=== PATIENT | male | born 1935 | race American Indian/Alaskan Native ===

== ENCOUNTER 2020-07-12 11:53 | Emergency (ER) | payer MEDICARE, MEDICAID ==
[~2020-07-12] VITALS: Ht 185.4 cm; Wt 98.0 kg
[~2020-07-12 11:53] MED LIST: ALBU8.5H8 INH; ALLO100T PO; AZI25OT PO; BUDE10.22 INH; CARV-50 PO; CLON0.1T2 PO; DILT240C47 PO; FINA5TAB11 PO; FLO0.4C PO; FLUO20CA39 PO; FURO-150 PO; GABA600T13 PO; GUAI100L97 PO; HUM7525 SQ; ICOS1CAP PO; IPRA4AER IH; LACT1CAP26 PO; LAMO100T2 PO; LINA5TAB4 PO; LISI40TA4 PO; METF-516 PO; MULT-384 PO; NITR0.4T51 SL; OXYC-150 PO; PANT40TA54 PO; PHEN100C4 PO; ROSU40TA PO; VENL75TA90 PO; WOOL454C TP
[2020-07-12] MEDS ORDERED: normal saline 1000ML IV soln IVB ONE (12:15)
[2020-07-12 12:29] LABS: BASOPHILS % (AUTO) 0.3 % (0-1); EOSINOPHILS # (AUTO) 0.3 X10'3 (0-0.9); EOSINOPHILS % (AUTO) 4.4 % (0-6); HEMATOCRIT 35.7 % (42.0-52.0); HEMOGLOBIN 12.1 g/dl (14.0-17.9); LYMPHOCYTES # (AUTO) 1.7 X10'3 (1.1-4.8); LYMPHOCYTES % (AUTO) 20.9 % (21-51); MEAN CORPUSCULAR HEMOGLOBIN 32.2 PG (27.0-31.0); MEAN CORPUSCULAR HGB CONC 33.9 g/dL (33.0-36.5); MEAN CORPUSCULAR VOLUME 94.8 FL (78-98); MEAN PLATELET VOLUME 8.9 FL (7.4-10.4); MONOCYTES # (AUTO) 0.5 X10'3 (0-0.9); MONOCYTES % (AUTO) 6.5 % (2-12); NEUTROPHILS # (AUTO) 5.4 X10'3 (1.8-7.7); NEUTROPHILS % (AUTO) 67.9 % (42-75); PLATELET COUNT 175 X10'3 (140-440); RED BLOOD COUNT 3.77 X10'6 (4.70-6.10); RED CELL DISTRIBUTION WIDTH 14.7 % (11.5-14.5); WHITE BLOOD COUNT 7.9 X10'3 (4.5-11.0)
[2020-07-12 12:40] LABS: ALANINE AMINOTRANSFERASE 33 U/L (12-78); ALBUMIN 3.2 G/DL (3.4-5.0); ALBUMIN/GLOBULIN RATIO 0.9 (1.1-1.5); ALKALINE PHOSPHATASE 87 IU/L (46-116); ANION GAP 6 (8-16); ASPARTATE AMINO TRANSFERASE 22 U/L (10-37); BILIRUBIN,TOTAL 0.2 MG/DL (0.1-1.0); BLOOD UREA NITROGEN 39 MG/DL (7-18); CALCIUM 7.9 MG/DL (8.5-10.1); CHLORIDE 104 MMOL/L (99-107); CREATININE 1.77 MG/DL (0.60-1.10); GLUCOSE 353 MG/DL (70-104); POTASSIUM 4.5 MMOL/L (3.5-5.1); SODIUM 136 MMOL/L (135-145); TOTAL CARBON DIOXIDE 25.9 MMOL/L (24-32); TOTAL PROTEIN 6.8 G/DL (6.4-8.2); eGFR 37 ML/MIN
[2020-07-12] MEDS ORDERED: oxyCODONE/APAP 10/325mg tablet PO ONE (13:30)
--- NOTE | 2020-07-12 13:46 | NUR ---
PATIENT STATES THAT HE IS NOT ALLERGIC TO MORPHINE
--- NOTE | 2020-07-12 13:48 | NUR ---
PATIENT DRANK 240 ML WITHOUT DIFFICULTY
[2020-07-12] MEDS ORDERED: normal saline 1000ml 1,000 ML IV ONE (13:55)
[2020-07-12 13:56] LABS: CLARITY,URINE CLEAR (Clear); COLOR,URINE YELLOW (Yellow); GLUCOSE, URINE 100 mg/dl (Neg); KETONES,URINE NEGATIVE (Neg); LEUKOCYTE ESTERASE ,URINE NEGATIVE (Neg); NITRITES, URINE NEGATIVE (Neg); OCCULT BLOOD,URINE NEGATIVE (Neg); PH,URINE 5.5 (4.8-8.0); PROTEIN,URINE NEGATIVE (Neg); UROBILINOGEN,URINE 0.2 E.U/dL (0.2-1.0)
--- NOTE | 2020-07-12 13:56 | NUR ---
DR ORTIZ IN ROOM. PATIENT IS MORE ALERT AND PERKY. VERBAL ORDER FOR 500 ML NS PRIOR TO DC
[2020-07-12 13:59] LABS: UA COLLECTION TYPE FOLEY CATH
--- NOTE | 2020-07-12 14:07 | NUR ---
PERICARE DONE AFTER STRAIGHT CATH, DIAPER FILLED WITH URINE, NEW DIAPER PLACED
--- NOTE | 2020-07-12 14:32 | NUR ---
called danay caregiver to come pick out hand pt, she was very reluctant to come and get him, i reasurred her that all lab work and scans came back within normal limits and that now pt needs to follow up with pcd inorder to continue his care. caregiver is danay mancilla [phone]
--- NOTE | 2020-07-12 15:15 | NUR ---
PT WAS PICKED UP BY CAREGIVER THAT WANTED ME TO EXPLAI HIS MEDICATIONS TO HER THAT HE WAS PRESCRIBED FROM A PREVIOUS FACILITY. I EXPLAINED TO HER THAT SHE NEEDED TO CONTACT THAT FACILITY AND HIS PRIMARY CARE DR TO GO OVER PTS MEDICATIONS AND THAT WE ARE INCHARGE OF HIS ACUTE CARE NEEDS THAT HE WAS BROUGHT IN FOR. CAREGIVER REQUESTED THE PAPERWORK HE GOT BROUGHT IN WITH FROM PREVIOUS FACILITY I MADE A COPY OF IT AND KEPT ON EIN THE CHART AND GAVE THE OTHER TO HER.
[2020-07-12 15:19] VITALS: BP 179/82
== END 2020-07-12 15:22 | disposition home or self-care (01) ==
LOC: ER 11:54
DX: E86.0 Dehydration (principal); R41.82 Altered mental status, unspecified; E11.65 Type 2 diabetes mellitus with hyperglycemia; I25.10 Atherosclerotic heart disease of native coronary artery without angina pectoris; Z86.73 Personal history of transient ischemic attack (TIA), and cerebral infarction without residual deficits; I50.9 Heart failure, unspecified; I13.0 Hypertensive heart and chronic kidney disease with heart failure and stage 1 through stage 4 chronic kidney disease, or unspecified chronic kidney disease; J44.9 Chronic obstructive pulmonary disease, unspecified; N18.9 Chronic kidney disease, unspecified; E11.22 Type 2 diabetes mellitus with diabetic chronic kidney disease; G89.29 Other chronic pain; F32.9 Major depressive disorder, single episode, unspecified; Z98.890 Other specified postprocedural states; Z88.5 Allergy status to narcotic agent; Z88.8 Allergy status to other drugs, medicaments and biological substances; Z79.82 Long term (current) use of aspirin; Z79.4 Long term (current) use of insulin; Z79.899 Other long term (current) drug therapy
CPT/HCPCS: 36415; 70450; 71045; 80053; 81003; 82948; 85025; 93005; 96360; 99285; J7030

== ENCOUNTER 2020-07-13 12:53 | Emergency (ER) | payer MEDICARE, MEDICAID ==
[~2020-07-13] VITALS: Ht 182.9 cm; Wt 97.5 kg
[2020-07-13 14:12] LABS: BASOPHILS % (AUTO) 0.5 % (0-1); EOSINOPHILS # (AUTO) 0.2 X10'3 (0-0.9); EOSINOPHILS % (AUTO) 2.8 % (0-6); HEMATOCRIT 34.9 % (42.0-52.0); HEMOGLOBIN 12.3 g/dl (14.0-17.9); LYMPHOCYTES # (AUTO) 1.4 X10'3 (1.1-4.8); LYMPHOCYTES % (AUTO) 19.6 % (21-51); MEAN CORPUSCULAR HGB CONC 35.3 g/dL (33.0-36.5); MEAN CORPUSCULAR VOLUME 93.5 FL (78-98); MEAN PLATELET VOLUME 8.7 FL (7.4-10.4); MONOCYTES # (AUTO) 0.6 X10'3 (0-0.9); MONOCYTES % (AUTO) 7.8 % (2-12); NEUTROPHILS # (AUTO) 4.9 X10'3 (1.8-7.7); NEUTROPHILS % (AUTO) 69.3 % (42-75); PLATELET COUNT 167 X10'3 (140-440); RED BLOOD COUNT 3.74 X10'6 (4.70-6.10); RED CELL DISTRIBUTION WIDTH 14.7 % (11.5-14.5); WHITE BLOOD COUNT 7.1 X10'3 (4.5-11.0)
[2020-07-13 14:41] LABS: ALANINE AMINOTRANSFERASE 33 U/L (12-78); ALBUMIN 3.2 G/DL (3.4-5.0); ALBUMIN/GLOBULIN RATIO 0.9 (1.1-1.5); ALKALINE PHOSPHATASE 86 IU/L (46-116); ANION GAP 7 (8-16); ASPARTATE AMINO TRANSFERASE 24 U/L (10-37); BILIRUBIN,TOTAL 0.3 MG/DL (0.1-1.0); BLOOD UREA NITROGEN 30 MG/DL (7-18); BUN/CREATININE RATIO 23.4 (5.4-32.0); CALCIUM 8.5 MG/DL (8.5-10.1); CHLORIDE 105 MMOL/L (99-107); CREATININE 1.28 MG/DL (0.60-1.10); GLUCOSE 284 MG/DL (70-104); POTASSIUM 4.1 MMOL/L (3.5-5.1); SODIUM 140 MMOL/L (135-145); TOTAL CARBON DIOXIDE 27.8 MMOL/L (24-32); TOTAL PROTEIN 6.8 G/DL (6.4-8.2); eGFR 54 ML/MIN
[2020-07-13] MEDS ORDERED: normal saline 1000ML IV soln IVB ONE (15:10)
[2020-07-13 15:54] LABS: CLARITY,URINE CLEAR (Clear); COLOR,URINE STRAW (Yellow); GLUCOSE, URINE 500 mg/dl (Neg); KETONES,URINE NEGATIVE (Neg); LEUKOCYTE ESTERASE ,URINE NEGATIVE (Neg); NITRITES, URINE NEGATIVE (Neg); OCCULT BLOOD,URINE NEGATIVE (Neg); PROTEIN,URINE 30 mg/dl (Neg); UROBILINOGEN,URINE 0.2 E.U/dL (0.2-1.0)
[2020-07-13 15:56] LABS: UA COLLECTION TYPE STRAIGHT CATH
[2020-07-13 16:02] LABS: BACTERIA,URINE NONE SEEN /HPF (Neg); MUCUS STRANDS NONE SEEN /LPF (Neg); RBC,URINE NONE SEEN /HPF (0-2); SQUAMOUS EPITHELIAL CELL,UR FEW /LPF (FEW); WBC,URINE NONE SEEN /HPF (0-4)
--- NOTE | 2020-07-13 16:19 | NUR ---
Attempting to phone patient's caregiver, no answer received. Pt reports she will come to the ED to pick him up for discharge to home. Paging Car Knocker for consult regarding the patient's care and discharge plan.
--- NOTE | 2020-07-13 16:55 | NUR ---
Pt's caregiver phoned and when this nurse answered the phone she stated "I am unable to pick him up until you guys adjust his medication list." Pt's caregiver informed that we are an emergency department and we handle emergency medical conditions and are not able to manage the patient's home medication management. She then stated "then I am unable to pick him up and I will phone your social worker clinical Oma to inform her I am not able to pick him up for discharge to come home" and hung up the phone. Charge Nurse Nina Thomas RN notified of the above conversation and paged School Psychologist Assistant again.
--- NOTE | 2020-07-13 17:34 | NUR ---
Phoned [facility] and spoke with Grecia to file a report of the patient's caregiver refusing to pick him up and statements that she will continue to send him back via ambulance until we make adjustments to the home medication regimen. Pt is clear that he has no desire to be admitted to the hospital and wants to be discharged home to his apartment. Grecia reports she will have a Media Assistant follow up with the situation.
--- NOTE | 2020-07-13 19:35 | NUR ---
Spoke with the ED provider Dr. Villa regarding the patient's elevated BP and he said to continue to monitor the BP and no new orders received at this time.
--- NOTE | 2020-07-13 19:40 | NUR ---
Patient is attempting to phone his patient care coordinator to pick him up.
--- NOTE | 2020-07-13 20:05 | NUR ---
Patient phoned his caregiver and another neighbor answered the phone. Pt's caregiver is still refusing to pick him up for discharge to home. Pt is alert and oriented x 4, of sound mind and verbalized desire to be discharged to his apartment and follow up with his caregiver
[2020-07-13] MEDS ORDERED: oxyCODONE/APAP 5-325mg tablet PO ONE (21:05)
[2020-07-13] MEDS ORDERED: hydrALAZINE 20mg/ml inj. IV ONE (22:15)
--- NOTE | 2020-07-13 22:18 | NUR ---
[facility] states that their insurance prohibits them from transporting a patient that requires two people to transfer.
--- NOTE | 2020-07-13 22:49 | NUR ---
[facility] contacted to arrange transportation home. Kristina at [facility] said that they do not have an available unit at this time, but will call with an ETA when a unit becomes available.
[2020-07-13 23:24] VITALS: BP 193/80
== END 2020-07-13 23:29 | disposition home or self-care (01) ==
LOC: ER 12:54
DX: E86.0 Dehydration (principal); I25.10 Atherosclerotic heart disease of native coronary artery without angina pectoris; I50.9 Heart failure, unspecified; I13.0 Hypertensive heart and chronic kidney disease with heart failure and stage 1 through stage 4 chronic kidney disease, or unspecified chronic kidney disease; J44.9 Chronic obstructive pulmonary disease, unspecified; N18.9 Chronic kidney disease, unspecified; E11.22 Type 2 diabetes mellitus with diabetic chronic kidney disease; G89.29 Other chronic pain; F32.9 Major depressive disorder, single episode, unspecified; Z86.73 Personal history of transient ischemic attack (TIA), and cerebral infarction without residual deficits; Z98.890 Other specified postprocedural states; Z88.5 Allergy status to narcotic agent; Z88.6 Allergy status to analgesic agent; Z79.2 Long term (current) use of antibiotics; Z79.4 Long term (current) use of insulin; Z79.899 Other long term (current) drug therapy
CPT/HCPCS: 36415; 80053; 81001; 84484; 85025; 93005; 96361; 96374; 99285; J0360; J7030

== ENCOUNTER 2020-12-20 13:07 | Emergency (ER) | payer MEDICARE, MEDICAID ==
[~2020-12-20] VITALS: Ht 185.4 cm; Wt 102.3 kg
[~2020-12-20 13:07] MED LIST changes: +LISI40TA13 PO; -LISI40TA4 PO
[2020-12-20] MEDS ORDERED: CLON0.1T PO (13:51)
[2020-12-20] MEDS ORDERED: FURO40TA4 PO (13:51)
[2020-12-20] MEDS ORDERED: BUSP30TA3 PO (13:53)
[2020-12-20] MEDS ORDERED: NIFE90TA44 PO (13:53)
[2020-12-20] MEDS ORDERED: NYSPWD TOP (13:53)
[2020-12-20 14:50] LABS: BASOPHILS % (AUTO) 0.2 % (0-1); EOSINOPHILS # (AUTO) 0.1 X10'3 (0-0.9); EOSINOPHILS % (AUTO) 1.1 % (0-6); HEMATOCRIT 39.4 % (42.0-52.0); HEMOGLOBIN 13.5 g/dl (14.0-17.9); LYMPHOCYTES # (AUTO) 1.7 X10'3 (1.1-4.8); LYMPHOCYTES % (AUTO) 20.3 % (21-51); MEAN CORPUSCULAR HEMOGLOBIN 33.2 PG (27.0-31.0); MEAN CORPUSCULAR HGB CONC 34.2 g/dL (33.0-36.5); MEAN CORPUSCULAR VOLUME 97.2 FL (78-98); MEAN PLATELET VOLUME 8.9 FL (7.4-10.4); MONOCYTES # (AUTO) 0.5 X10'3 (0-0.9); MONOCYTES % (AUTO) 5.7 % (2-12); NEUTROPHILS % (AUTO) 72.7 % (42-75); PLATELET COUNT 158 X10'3 (140-440); RED BLOOD COUNT 4.05 X10'6 (4.70-6.10); RED CELL DISTRIBUTION WIDTH 15.8 % (11.5-14.5); WHITE BLOOD COUNT 8.3 X10'3 (4.5-11.0)
[2020-12-20 15:07] LABS: ALANINE AMINOTRANSFERASE 49 U/L (12-78); ALBUMIN 3.6 G/DL (3.4-5.0); ALBUMIN/GLOBULIN RATIO 0.9 (1.1-1.5); ALKALINE PHOSPHATASE 99 IU/L (46-116); ANION GAP 10 (8-16); ASPARTATE AMINO TRANSFERASE 27 U/L (10-37); BILIRUBIN,TOTAL 0.3 MG/DL (0.1-1.0); BLOOD UREA NITROGEN 47 MG/DL (7-18); BUN/CREATININE RATIO 32.4 (5.4-32.0); CALCIUM 8.5 MG/DL (8.5-10.1); CHLORIDE 105 MMOL/L (99-107); CREATININE 1.45 MG/DL (0.60-1.10); GLUCOSE 187 MG/DL (70-104); POTASSIUM 4.5 MMOL/L (3.5-5.1); SODIUM 141 MMOL/L (135-145); TOTAL CARBON DIOXIDE 26.5 MMOL/L (24-32); TOTAL PROTEIN 7.8 G/DL (6.4-8.2); eGFR 46 ML/MIN
[2020-12-20] MEDS ORDERED: loperamide 2mg capsule PO ONE (15:20)
[2020-12-20] MEDS ORDERED: normal saline 1000ML IV soln IVB ONE (15:20)
[2020-12-20] MEDS ORDERED: LOPE-190 PO (16:01)
[2020-12-20 16:10] LABS: CLARITY,URINE CLOUDY (Clear); COLOR,URINE STRAW (Yellow); GLUCOSE, URINE NEGATIVE (Neg); KETONES,URINE NEGATIVE (Neg); LEUKOCYTE ESTERASE ,URINE SMALL (Neg); NITRITES, URINE NEGATIVE (Neg); OCCULT BLOOD,URINE TRACE-INTACT (Neg); PROTEIN,URINE NEGATIVE (Neg); UROBILINOGEN,URINE 0.2 E.U/dL (0.2-1.0)
[2020-12-20 16:17] LABS: UA COLLECTION TYPE FOLEY CATH
[2020-12-20 16:25] LABS: BACTERIA,URINE 4+ /HPF (Neg); SQUAMOUS EPITHELIAL CELL,UR FEW /LPF (FEW)
[2020-12-20 16:27] LABS: MUCUS STRANDS MODERATE /LPF (Neg)
[2020-12-20 16:28] LABS: WBC CLUMPS,URINE FEW /HPF (NEGATIVE)
[2020-12-20 16:29] LABS: RBC,URINE 0-2 /HPF (0-2)
[2020-12-20 17:41] VITALS: BP 163/79
== END 2020-12-20 17:43 | disposition home or self-care (01) ==
LOC: ER 13:08
DX: R19.7 Diarrhea, unspecified (principal); R05 Cough; I25.10 Atherosclerotic heart disease of native coronary artery without angina pectoris; J44.9 Chronic obstructive pulmonary disease, unspecified; I13.0 Hypertensive heart and chronic kidney disease with heart failure and stage 1 through stage 4 chronic kidney disease, or unspecified chronic kidney disease; E11.22 Type 2 diabetes mellitus with diabetic chronic kidney disease; N18.9 Chronic kidney disease, unspecified; G89.29 Other chronic pain; M10.9 Gout, unspecified; F32.9 Major depressive disorder, single episode, unspecified; Z86.73 Personal history of transient ischemic attack (TIA), and cerebral infarction without residual deficits; Z86.69 Personal history of other diseases of the nervous system and sense organs; Z98.890 Other specified postprocedural states; Z60.2 Problems related to living alone; Z88.5 Allergy status to narcotic agent; Z88.8 Allergy status to other drugs, medicaments and biological substances; Z79.4 Long term (current) use of insulin; Z79.899 Other long term (current) drug therapy
CPT/HCPCS: 36415; 71045; 80053; 81001; 84484; 85025; 87088; 99284; J7030; 87077; 87186